=== PATIENT | female | born 2000 | race Caucasian/White ===

== ENCOUNTER 2025-05-16 04:10 | Emergency (ER) | payer BC, SELFPAY ==
[2025-05-16 04:14] VITALS: BP 141/76; PULSE 120; TEMP 38.6; O2SAT 99; BMI 28.3
--- NOTE | 2025-05-16 04:31 | ED_ITS ---
HPI HPI - General Adult General Chief complaint: Fever Stated complaint: FEVER, DIZZINESS, VOMITING Time Seen by Provider: 05/16/25 04:13 Source: patient Mode of arrival: walk-in Limitations: no limitations History of Present Illness HPI narrative: This 24-year-old female who is otherwise healthy and just finished antibiotics for a right otitis externa presents for evaluation of fevers, chills, body aches with nausea and 1 episode of vomiting. The patient and her boyfriend are on their way back to [place] from a weekend concert series in [place]. She states she was not feeling that well prior to going to the concert but she was still on the antibiotics. She had intermittent chills during the concert series and on the way back home tonight her fever went up as high as 103. She had 1 episode of vomiting. She denies any sore throat or runny nose. She denies any cough. She has no abdominal pain or back pain. She denies any urinary symptoms. She does not have any headache, neck pain or stiffness. She does not have any skin rash. Related Data Allergies Allergy/AdvReac Type Severity Reaction Status Date / Time No Known Drug Allergies Allergy Verified 05/16/25 04:14 Review of Systems ROS Status of ROS 10 or more systems reviewed and unremark able except as noted in history and below PFSH PFSH Social History Little interest or pleasure in doing things: not at all Feeling down, depressed, or hopeless: not at all Exam Narrative Exam Narrative: Vital signs and Nursing Notes reviewed: Patient is febrile and tachycardic with a pulse of 120, blood pressure is mildly elevated 141/76, she is not hypoxic with pulse ox of 99% on room air General: Awake, alert, oriented, no acute distress, nontoxic in appearance, smiling and interacting with her boyfriend, tolerating clear liquids HEENT: Normocephalic atraumatic, mucous membranes are moist and pink, eyes are clear, normal conjunctiva, vision is grossly intact, posterior pharynx is normal in appearance. Tympanic membranes are normal bilaterally-there is a small amount of brown drainage in the dependent portion of the right ear canal but there is no sign of active otitis externa or otitis media, no mastoid tenderness or redness noted Neck: Supple, no meningeal signs, no anterior or posterior cervical lymphadenopathy Chest: Lungs are clear to auscultation with good air entry, there is no wheezing rhonchi or rales appreciated no accessory muscle use, patient is speaking in complete sentences-no chest wall tenderness to palpation CVS: Regular rate and rhythm S1-S2, tachycardic at triage with a pulse of 120 no murmurs rubs or gallops, pulses are brisk and equal bilaterally ABD: Soft, nondistended, nontender, no rebound guarding or rigidity, bowel sounds are normal, no pulsatile masses appreciated Extremities: Moving all extremities, no lower extremity tenderness or swelling noted, negative Homans' sign, pulses are brisk and equal bilaterally Skin: Normal in appearance without rash,pallor, petechiae or purpura Neuro: No focal deficits Constitutional Vital Signs, click to edit/add: Last Vital Signs Temp 101.4 F H 05/16/25 04:14 Pulse 120 H 05/16/25 04:14 Resp 16 05/16/25 04:14 BP 141/76 05/16/25 04:14 Pulse Ox 99 05/16/25 04:33 O2 Del Method Room Air 05/16/25 04:33 Course Vital Signs Vital signs: Vital Signs Temperature 101.4 F H 05/16/25 04:14 Pulse Rate 120 H 05/16/25 04:14 Respiratory Rate 16 05/16/25 04:14 Blood Pressure 141/76 05/16/25 04:14 Pulse Oximetry 99 05/16/25 04:14 Oxygen Delivery Method Room Air 05/16/25 04:14 Temperature 101.4 F H 05/16/25 04:14 Pulse Rate 120 H 05/16/25 04:14 Respiratory Rate 16 05/16/25 04:14 Blood Pressure 141/76 05/16/25 04:14 Pulse Oximetry 99 05/16/25 04:33 Oxygen Delivery Method Room Air 05/16/25 04:33 Medical Decision Making MDM Narrative Medical decision making narrative: This 24-year-old female with no significant medical history presents for evaluation of a fever that started several days ago. She and her boyfriend were at a concert in [place] and were driving home when her fever spiked to 103. She had 1 episode of vomiting prior to arrival. On arrival she was still febrile and tachycardic. She states she recently finished an antibiotic for a right otitis media. That is no longer bothering her. She does not have a sore throat. She does not have a cough. She is not having any nausea or vomiting and upon arrival request something to drink. She was medicated with oral Tylenol and IV is placed and she was given IV fluids Zofran and Toradol. On reevaluation she is feeling much better. She was tested for flu and COVID. These were negative. She has normal white count and stable hemoglobin. Electrolytes are normal. Lactic acid is normal at 1.6. She is not having any abdominal pain flank pain or urinary symptoms and I did not feel the urine was indicated. She is also not coughing or short of breath and a chest x-ray was not ordered. I explained to her that I suspect her symptoms are viral in nature. She will be discharged home with a prescription for Zofran and ibuprofen. She was encouraged to rest, drink plenty of fluids and follow-up closely with her family physician in [place] if her symptoms do not resolve over the next 24 to 48 hours. Lab Data Labs: Lab Results 05/16/25 05/16/25 05/16/25 Range/Units 04:17 04:20 04:46 WBC 5.2 (4.0-11.0) 10^3/uL RBC 3.81 L (4.20-5.40) 10^6/uL Hgb 11.3 L (12.0-16.0) g/dL Hct 32.9 L (36.0-48.0) % MCV 86.4 (81.0-99.0) fL MCH 29.7 (26.7-34.0) pg MCHC 34.3 (29.9-35.2) g/dL RDW 12.8 (11.0-15.0) % Plt Count 133 L (150-450) 10^3/uL MPV 10.9 (9.5-13.5) fL Neut % (Auto) 86.2 H (43.0-75.0) % Lymph % (Auto) 6.6 L (20.5-60.0) % [facility] % (Auto) 4.5 (1.7-12.0) % Eos % (Auto) 1.7 (0.9-7.0) % Baso % (Auto) 0.6 (0.2-2.0) % Neut # (Auto) 4.4 (1.4-6.5) 10^3/uL Lymph # (Auto) 0.3 L (1.2-3.8) 10^3/uL [facility] # (Auto) 0.2 L (0.3-0.8) 10^3/uL Eos # (Auto) 0.1 (0.0-0.7) 10^3/uL Baso # (Auto) 0.0 (0.0-0.1) 10^3/uL Abs Immat Gran (auto) 0.02 (0.00-0.03) 10^3/uL Imm/Tot Granulo (auto) 0.4 (0.0-0.5) % Sodium 135 L (136-145) mmol/L Potassium 3.4 L (3.5-5.1) mmol/L Chloride 103 (98-107) mmol/L Carbon Dioxide 22.1 (21.0-32.0) mmol/L Anion Gap 13.3 BUN 12.0 (7.0-18.0) mg/dL Creatinine 0.77 (0.55-1.02) mg/dL Est GFR ( Amer) >60 (>=60 mL/min/1.73m^2) Est GFR (Non-Af Amer) >60 (>=60 mL/min/1.73m^2) BUN/Creatinine Ratio 15.6 Glucose 119 H (74-106) mg/dL Lactate 1.6 (0.4-2.0) mmol/L Calcium 8.0 L (8.5-10.1) mg/dL Total Bilirubin 0.2 (0.2-1.0) mg/dL AST 16 (15-37) U/L ALT 22 (14-59) U/L Alkaline Phosphatase 67 (46-116) U/L Total Protein 6.7 (6.4-8.2) g/dL Albumin 3.2 L (3.4-5.0) g/dL Globulin 3.5 g/dL Albumin/Globulin Ratio 0.9 Influenza Type A Ag Negative Influenza Type B Ag Negative SARS-CoV-2 Ag (CV2AG) Negative (NEGATIVE) Discharge Plan Discharge Chief Complaint: Fever Clinical Impression: Viral infection Patient Disposition: Home, Self-Care Time of Disposition Decision: 05:30 Condition: Good Print Language: Algerian Instructions: Viral Syndrome (ED) Referrals: Physician,Non-Staff, MD [Primary Care Provider] - 1 week
[2025-05-16 04:33] VITALS: O2SAT 99
[2025-05-16 04:34] LABS: Hematocrit 32.9 % (36.0-48.0); Hemoglobin 11.3 g/dL (12.0-16.0); Immature Granulocytes Abs Auto 0.02 10^3/uL (0.00-0.03); Immature Granulocytes Pct Auto 0.4 % (0.0-0.5); Lymphocytes Absolute Auto 0.3 10^3/uL (1.2-3.8); Mean Corpuscular HGB Conc 34.3 g/dL (29.9-35.2); Mean Corpuscular Hemoglobin 29.7 pg (26.7-34.0); Mean Corpuscular Volume 86.4 fL (81.0-99.0); Platelet Count 133 10^3/uL (150-450); Red Blood Count 3.81 10^6/uL (4.20-5.40); White Blood Count 5.2 10^3/uL (4.0-11.0)
[2025-05-16 04:41] LABS: SARS-CoV-2 Ag NEGATIVE (NEGATIVE)
[2025-05-16 04:48] LABS: Lactate/Lactic Acid 1.6 mmol/L (0.4-2.0)
[2025-05-16] MEDS: ACETAMINOPHEN 325 MG TABLET 650 MG PO (04:53)
[2025-05-16] MEDS: KETOROLAC TROMETHAMINE 30 MG/ML VIAL IVP (04:53)
[2025-05-16] MEDS: 0.9 % SODIUM CHLORIDE 1,000 ML 1000 ML IV (04:54)
[2025-05-16 05:04] LABS: Alanine Aminotransferase 22 U/L (14-59); Albumin Globulin Ratio 0.9; Albumin Level 3.2 g/dL (3.4-5.0); Alkaline Phosphatase 67 U/L (46-116); Anion Gap 13.3; Aspartate Amino Transferase 16 U/L (15-37); Blood Urea Nitrogen 12.0 mg/dL (7.0-18.0); Calcium 8.0 mg/dL (8.5-10.1); Carbon Dioxide 22.1 mmol/L (21.0-32.0); Chloride 103 mmol/L (98-107); Estimated GFR (African America >60 (>=60 mL/min/1.73m^2); Estimated GFR (Non-African Ame >60 (>=60 mL/min/1.73m^2); Globulin 3.5 g/dL; Glucose 119 mg/dL (74-106); Potassium 3.4 mmol/L (3.5-5.1); Sodium 135 mmol/L (136-145); Total Protein 6.7 g/dL (6.4-8.2)
[2025-05-16 06:10] VITALS: BP 98/61; PULSE 89; O2SAT 100
== END 2025-05-16 06:10 | disposition home or self-care (01) ==
PROVIDERS: Emergency Provider Emergency Medicine
DX: B34.9 Viral infection, unspecified (principal); R50.9 Fever, unspecified; R52 Pain, unspecified; R11.2 Nausea with vomiting, unspecified
CPT/HCPCS: 36415; 80053; 83605; 85025; 87804; 87811; 96361; 96374; 96375; 99284; J1885; J2405